=== PATIENT | female | born 1945 ===

== ENCOUNTER 2016-11-12 08:42 | Day surgery (SDC) | payer MEDICARE ==
[2016-11-12 09:23] VITALS: BMI 20.7
[2016-11-12] MEDS ORDERED: Propofol 10 mg/ml Inj (20 ML) ONE (10:55)
[2016-11-12 11:57] VITALS: O2SAT 100
[2016-11-12 12:34] VITALS: BP 110/60; PULSE 77; RESP 14; TEMP 97
== END 2016-11-12 12:30 | disposition home or self-care (01) ==
LOC: C.ENDO 08:42
PROVIDERS: ATTEND Internal Medicine Gastroenterology
DX: Z12.11 Encounter for screening for malignant neoplasm of colon (principal); K63.89 Other specified diseases of intestine; K57.30 Diverticulosis of large intestine without perforation or abscess without bleeding; K64.8 Other hemorrhoids; G50.0 Trigeminal neuralgia; K59.01 Slow transit constipation; G40.909 Epilepsy, unspecified, not intractable, without status epilepticus; Z80.8 Family history of malignant neoplasm of other organs or systems
CPT/HCPCS: 45380; 88305; J2704